=== PATIENT | male | born 1970 | race Caucasian/White ===

== ENCOUNTER 2020-11-12 17:03 | Emergency (ER) | payer OTHER ==
[2020-11-12 17:21] VITALS: BP 128/89; PULSE 78; RESP 16; TEMP 98.1
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
== END 2020-11-12 18:53 | disposition home or self-care (01) ==
LOC: EC 17:03
DX: S16.1XXA Strain of muscle, fascia and tendon at neck level, initial encounter (principal); V43.52XA Car driver injured in collision with other type car in traffic accident, initial encounter; Y92.410 Unspecified street and highway as the place of occurrence of the external cause
CPT/HCPCS: 70450; 72125; 99284